=== PATIENT | female | born 1950 | race Caucasian/White ===

== ENCOUNTER 2016-12-06 08:07 | Day surgery (SDC) | payer OTHER, BC ==
[2016-12-06] MEDS ORDERED: DIAZEPAM 5 MG TAB PO ONE (08:10)
[2016-12-06] MEDS ORDERED: FAMOTIDINE 20 MG TAB PO ONE (08:10)
[2016-12-06] MEDS ORDERED: ASPIRIN EC 325 MG TAB PO ONE ×2 (08:10→08:35)
[2016-12-06] MEDS ORDERED: diphenhydrAMINE 25 MG CAP PO ONE ×2 (08:10→08:35)
[2016-12-06] MEDS ORDERED: NS 1,000 ML IV ONE (08:10)
--- NOTE | 2016-12-06 08:33 | CPEKG ---
Heart Rate: 59 RR Interval: 1017 P-R Interval: 156 QRSD Interval: 88 QT Interval: 432 QTC Interval: 428 P [place]: 82 QRS [place]: 37 T Wave [place]: 56 EKG Severity - NORMAL ECG - EKG Impression: SINUS RHYTHM Electronically Signed By: Guevara Hillman 06-Dec-2016 14:23:47
[2016-12-06] MEDS ORDERED: DIAZEPAM 5 MG TAB ONE (08:35)
[2016-12-06] MEDS ORDERED: FAMOTIDINE 20 MG TAB ONE (08:35)
[2016-12-06] MEDS ORDERED: fentaNYL 100 MCG/2 ML INJ ONE (08:42)
[2016-12-06] MEDS ORDERED: LIDOCAINE 1% 30 ML SDV ONE (08:42)
[2016-12-06] MEDS ORDERED: MIDAZOLAM 2 MG/2 ML VIAL ONE (08:43)
[2016-12-06] MEDS ORDERED: VERAPAMIL 5 MG/2 ML VIAL ONE (08:43)
[2016-12-06] MEDS ORDERED: HEPARIN 10,000 UNIT/10 ML MDV ONE (08:43)
[2016-12-06] MEDS ORDERED: IOPAMIDOL (ISOVUE 370) 100 ML BTL IV ONE (08:44)
[2016-12-06 08:53] LABS: % IMMATURE GRANULYOCYTES 0.2 % (0.0-1.1); ABSOLUTE IMMATURE GRANULOCYTES 0.01 10^3/uL (0.00-0.10); ADD DIFF? NO; ADD MORPH? NO; ADD SCAN? NO; ATYPICAL LYMPHOCYTE FLAG 0 (0-99); FRAGMENT RBC FLAG 0 (0-99); HEMATOCRIT 42.1 % (38.0-47.0); HEMOGLOBIN 14.3 g/dL (12.6-16.3); LEFT SHIFT FLG 0 (0-99); LIPEMIA HEMOLYSIS FLAG 90 (0-99); MEAN CELL HEMOGLOBIN 31.2 pg (27.9-34.1); MEAN CELL VOLUME 91.9 fL (81.5-99.8); MEAN PLATELET VOLUME 9.1 fL (8.7-11.7); PLATELET CLUMPS FLAG 10 (0-99); PLATELET COUNT 210 10^3/uL (150-400); RED BLOOD CELL COUNT 4.58 10^6/uL (4.18-5.33); RED CELL DISTRIBUTION WIDTH 12.7 % (11.5-15.2)
[2016-12-06 08:59] LABS: INR 0.91 (0.83-1.16); PROTIME(PATIENT) 12.2 SEC (12.0-15.0)
[2016-12-06 09:05] LABS: ANION GAP 10 mEq/L (8-16); CALCIUM 9.6 mg/dL (8.5-10.4); CARBON DIOXIDE 25 mEq/l (22-31); CHLORIDE 107 mEq/L (97-110); CHOLESTEROL 145 mg/dL (140-220); CREATININE 0.9 mg/dL (0.6-1.0); GLOMERULAR FILTRATION RATE > 60; GLUCOSE 106 mg/dL (70-100); HIGH DENSITY LIPOPROTEIN 69 mg/dL (40-85); LDL/HDL RATIO 0.84 RATIO (1.00-3.22); LOW DENSITY LIPOPROTEIN 58 mg/dL (80-100); MAGNESIUM 2.1 mg/dL (1.6-2.3); NON-HIGH DENSITY LIPOPROTEIN 76 mg/dL (90-129); POTASSIUM 4.1 mEq/L (3.5-5.2); SODIUM 142 mEq/L (134-144); TRIGLYCERIDE 94 mg/dL (35-135); VERY LOW DENSITY LIPOPROTEINS 18 mg/dL (8-25)
--- NOTE | 2016-12-06 11:06 | PDDXCAT ---
Diagnostic Cath Note - . Date: 12/06/16 Intervention: None *Procedure 1. selective coronary angiography 2. left heart catheterization 3. left ventriculogram Indication: Chest discomfort and dyspnea with exertion consistent with CCS II angina, known coronary artery disease on the basis of a positive calcium score, abnormal EKG stress test with ST elevation in II, III, v5, v6 and ST elevation in AVR. Access: right radial (a plethysmography trace assisted Capo's Test was used to document dual artery supply to the hand and index finger prior to access). *Materials Left Heart Cath size: 5F Left Heart Cath materials: JL3.5, JR4.0, pigtail *Findings-Selective Coronary Angiography LM: Short and ~5 mm in size. Bifurcates into an LAD and circumflex system. No disease is identified. LAD: The proximal LAD is ~3 mm in size without evidence of flow-limiting disease and THU III flow throughout. LCX: The proximal left circumflex is ~2 mm in size. There is an ostial circumflex lesion of 20% with THU III flow. There is no evidence of flow- limiting coronary artery disease is THU III flow. RCA: The right coronary artery is dominant (gives rise to PDA and PLV branches) and is ~4 mm in size. Maximal luminal stenosis of 30% in the proximal RCA without flow-limiting obstruction. There is THU III flow throughout. *Findings-Left Heart Catheterization EDP: 7 mmHg LVEF: 65% AO: 129/59/90 mmHg Wall motion analysis: No wall motion abnormalities identified on left ventriculogram. The visualized portion of the thoracic aorta appears normal in size without nidia evidence of aneurysm or dissection. *Summary Complications: None Estimated blood loss: <50ml Closure method: TR Band Assessment/Conclusion: 1. [place] vessel coronary artery disease without evidence of flow-limiting obstruction. Maximal luminal stenosis was 30% in the right-dominant coronary artery as well as a 20% ostial left circumflex lesion. There was THU III flow throughout the right-dominant system. 2. Normal ejection fraction at 65%, LVEDP at 7 mmHg and no wall motion abnormalities identified on left ventriculogram. 3. Incidentally noted was catheter induced spasm of the RCA with associated EKG changes. The most appropriate treatment of the patient's symptoms would be SL Nitroglycerin PRN as a diagnostic and therapeutic trial.
== END 2016-12-06 14:42 | disposition home or self-care (01) ==
LOC: FCATH 08:07
PROVIDERS: ATTEND Internal Medicine Cardiovascular Disease
PROC: 4A023N7 Measurement of Cardiac Sampling and Pressure, Left Heart, Percutaneous Approach (ICD-10-PCS; principal; 2016-12-06)
PROC: B2151ZZ Fluoroscopy of Left Heart using Low Osmolar Contrast (ICD-10-PCS; principal; 2016-12-06)
PROC: B2111ZZ Fluoroscopy of Multiple Coronary Arteries using Low Osmolar Contrast (ICD-10-PCS; principal; 2016-12-06)
DX: R94.31 Abnormal electrocardiogram [ECG] [EKG] (principal); R07.89 Other chest pain; I25.111 Atherosclerotic heart disease of native coronary artery with angina pectoris with documented spasm; J45.909 Unspecified asthma, uncomplicated
CPT/HCPCS: J1644; J2250; J3010; Q9967

== ENCOUNTER → 2017-09-06 | Outpatient (CLI) | payer OTHER, BC | LOC: FIMAGING 10:56 | PROVIDERS: ATTEND Family Medicine | DX: Z12.31 Encounter for screening mammogram for malignant neoplasm of breast (principal) | CPT/HCPCS: G0202 ==

== ENCOUNTER → 2018-09-11 | Outpatient (CLI) | payer OTHER, BC | LOC: FIMAGING 13:04 | PROVIDERS: ATTEND Family Medicine | DX: Z12.31 Encounter for screening mammogram for malignant neoplasm of breast (principal); Z13.820 Encounter for screening for osteoporosis; M85.89 Other specified disorders of bone density and structure, multiple sites; E03.9 Hypothyroidism, unspecified; Z78.0 Asymptomatic menopausal state; Z79.899 Other long term (current) drug therapy ==